=== PATIENT | male | born 1995 | race Caucasian/White ===

== ENCOUNTER 2020-11-12 19:06 | Emergency (ER) | payer OTHER, SELFPAY ==
[2020-11-12] VITALS (7 sets, daily range): BP systolic 117–150; BP diastolic 79–99; PULSE 91–113; RESP 18; TEMP 37.1–37.6; O2SAT 97–99; BMI 24.3
--- NOTE | 2020-11-12 19:20 | XR_ITS ---
PROCEDURE INFORMATION: Exam: XR Chest Exam date and time: 11/12/2020 7:20 PM Age: 25 years old Clinical indication: Cough and shortness of breath and other: Weakness TECHNIQUE: Imaging protocol: XR of the chest. Views: 2 views. COMPARISON: No relevant prior studies available. FINDINGS: Lungs: Right lower lobe consolidative opacity. No appreciable pulmonary edema. Pleural spaces: No pleural effusion. No pneumothorax. Heart/Mediastinum: Cardiomediastinal silouhette is within normal limits. Bones/joints: No acute osseous abnormality. Soft tissues: Unremarkable. IMPRESSION: Right lower lobe consolidative opacity, compatible with pneumonia vs segmental atelectasis. Follow-up imaging to resolution is warranted.
[2020-11-12 19:38] LABS: Basophils # 0.1 K/mm3 (0-0.2); Basophils % 1.4 % (0.1-2.0); Eosinophils % 0.8 % (0.1-12.0); Hematocrit 52.9 % (42.0-52.0); Lymphocytes # 1.2 K/mm3 (0.7-4.5); Lymphocytes % 34.8 % (10-50); Mean Corpuscular HGB Conc 34.1 g/dL (31.8-35.4); Mean Corpuscular Hemoglobin 30.5 pg (27.0-31.2); Mean Corpuscular Volume 89.4 fl (80-94); Monocytes # 0.2 K/mm3 (0.1-1.0); Monocytes % 5.6 % (1.7-9.3); Neutrophils # 1.9 K/mm3 (1.8-7.8); Neutrophils % 57.4 % (37.0-80.0); Platelet Count 157 K/mm3 (142-424); Red Blood Count 5.92 M/mm3 (4.60-6.20); Red Cell Distribution Width 12.8 % (11.5-17.5); White Blood Count 3.3 K/mm3 (4.8-10.8)
[2020-11-12 19:45] LABS: Alanine Aminotransferase 34 U/L (12-78); Albumin Level 4.7 g/dl (3.5-5.0); Albumin/Globulin Ratio 1.6 (1.1-1.8); Alkaline Phosphatase 61 U/L (38-126); Anion Gap 16.9 mEq/L (5-15); Aspartate Amino Transferase 37 U/L (17-59); Bilirubin,Total 0.5 mg/dl (0.2-1.3); Blood Urea Nitrogen 7 mg/dl (9-20); Calcium 8.7 mg/dl (8.4-10.2); Carbon Dioxide 29 mmol/L (22.0-30.0); Chloride 99 mmol/L (98-107); Creatinine Clearance Estimated 122 mL/min (50-200); Estimated Glomerular Filt Rate 93 ml/min (>60); GFR (African American) 112 ML/MIN (>60); Glucose 97 mg/dl (74-100); Potassium 3.9 mmoL/L (3.5-5.1); Sodium 141 mmol/L (136-145); Total Protein,Serum 7.7 g/dl (6.3-8.2)
[2020-11-12 19:57] LABS: C-Reactive Protein 16.2 mg/L (0-4)
[2020-11-12 20:11] LABS: Procalcitonin 0.158 ng/mL (0.0-2.0)
[2020-11-12 20:35] LABS: Erythrocyte Sedimentation Rate 1 mm/hr (0-15)
--- NOTE | 2020-11-12 21:03 | [facility].EDWEAK ---
ED Disposition Clinical Impression: COVID-19 with pulmonary comorbidity Disposition: Home, Self-Care Condition on Discharge: Good Instructions: DI for COVID-19 (Suspected or Confirmed ) Additional Instructions: use meds and call pcp for follow up Prescriptions: levoFLOXacin [Levaquin 500mg tab] 500 mg PO DAILY #7 tab Transmission Status: Pending to [id number] Referrals: Provider,Referral, [Primary Care Provider] - - Critical Care Critical Care Time: No Attestation: On 11/12/20, the high probability of a clinically significant, sudden or life threatening deterioration of the following system(s) required my full and direct attention, intervention and personal management. The time I documented below is in addition to time spent performing reported procedures but includes the following listed in this critical care notation. Medical Decision Making - Medical Records Medical records reviewed: Yes: I reviewed the patient's medical records. - Castro Inquiry Pt receiving controlled substance: No Vital Signs: 11/12/20 19:08 11/12/20 19:12 11/12/20 19:14 Temperature 99.6 F Temperature Source Oral Pulse Rate 104 H 110 H Pulse Rate [Right] 113 H Respiratory Rate 18 Blood Pressure 144/94 H 150/94 H Blood Pressure [Right Arm] 144/99 H Blood Pressure Mean 112 114 Blood Pressure Mean [Right Arm] 114 02 Sat by Pulse Oximetry 99 99 98 11/12/20 19:30 11/12/20 20:01 11/12/20 20:30 Temperature Temperature Source Pulse Rate 106 H 103 H 101 H Pulse Rate [Right] Respiratory Rate Blood Pressure 118/81 117/79 130/79 Blood Pressure [Right Arm] Blood Pressure Mean 97 93 96 Blood Pressure Mean [Right Arm] 02 Sat by Pulse Oximetry 99 97 - Lab Data Lab results reviewed: Yes: I reviewed the patient's lab results. Lab Results 11/12/20 19:25: WBC 3.3 L, RBC 5.92, Hgb 18.0, Hct 52.9 H, MCV 89.4, MCH 30.5, MCHC 34.1, RDW 12.8, Plt Count 157, MPV 8.0, Neut % (Auto) 57.4, Lymph % (Auto) 34.8, Cascade % (Auto) 5.6, Eos % (Auto) 0.8, Baso % (Auto) 1.4, Neut # (Auto) 1.9, Lymph # (Auto) 1.2, Cascade # (Auto) 0.2, Eos # (Auto) 0.0, Baso # (Auto) 0.1 11/12/20 19:25: Sodium 141, Potassium 3.9, Chloride 99, Carbon Dioxide 29, Anion Gap 16.9 H, BUN 7 L, Creatinine 1.00, Estimated Creat Clear 122, Estimated GFR 93, Est GFR ( Amer) 112, Glucose 97, Calcium 8.7, Total Bilirubin 0.5, AST 37, ALT 34, Alkaline Phosphatase 61, Total Protein 7.7, Albumin 4.7, Globulin 3.0, Albumin/Globulin Ratio 1.6 11/12/20 19:25: ESR 1 11/12/20 19:25: C-Reactive Protein 16.2 H, Procalcitonin 0.158 Result diagrams: 11/12/20 19:25 11/12/20 19:25 Orders (Tests/Meds): ED MEDICATIONS Generic Name Dose Route Start Last Admin Trade Name Freq PRN Reason Stop Dose Admin Sodium Chloride 1,000 mls @ 999 mls/hr 11/12/20 20:00 11/12/20 20:01 Sod Chlor 0.9% 1000ml Bag IV 11/12/20 21:00 999 mls/hr .[id number] GINA Administration Discontinued Medications Generic Name Dose Route Start Last Admin Trade Name Freq PRN Reason Stop Dose Admin Dexamethasone Sodium Phosphate 10 mg 11/12/20 19:58 11/12/20 20:00 Dexamethasone 4mg/Ml 5ml Mdv IV 11/12/20 19:59 10 mg ONCE ONE Administration Iopamidol 70 ml 11/12/20 21:32 11/12/20 21:33 Iopamidol-370 (76%);100ml Bottle IV 11/12/20 21:33 70 ml ONCE ONE Administration Ketorolac Tromethamine 30 mg 11/12/20 19:58 11/12/20 20:00 Ketorolac 30mg/Ml Vial IV 11/12/20 19:59 30 mg ONCE ONE Administration Ondansetron HCl 4 mg 11/12/20 19:58 11/12/20 20:00 Ondansetron 4mg/2ml Vial IV 11/12/20 19:59 4 mg ONCE ONE Administration Sodium Chloride 50 ml 11/12/20 21:32 11/12/20 21:33 0.9 % Sodium Chloride 50 Ml Vial IV 11/12/20 21:33 50 ml ONCE ONE Administration Sodium Chloride 10 ml 11/12/20 21:32 11/12/20 21:33 Sodium Chloride 0.9% 10ml Syr (Rad Only) IV 11/12/20 21:33 10 ml ONCE ONE Administration
--- NOTE | 2020-11-12 21:04 | CT_ITS ---
PROCEDURE INFORMATION: Exam: CTA Chest With Contrast Exam date and time: 11/12/2020 9:04 PM Age: 25 years old Clinical indication: Shortness of breath and other: Weakness; Additional info: Weakness, covid positive TECHNIQUE: Imaging protocol: Computed tomographic angiography of the chest with contrast. 3D rendering (Not supervised by radiologist): MIP and/or 3D reconstructed images were created by the technologist. Radiation optimization: All CT scans at this facility use at least one of these dose optimization techniques: automated exposure control; mA and/or kV adjustment per patient size (includes targeted exams where dose is matched to clinical indication); or iterative reconstruction. Contrast material: ISOVUE; Contrast volume: 70 ml; Contrast route: INTRAVENOUS (IV); COMPARISON: CR XR CHEST 2V 11/12/2020 7:27 PM FINDINGS: Pulmonary arteries: No pulmonary emboli. Aorta: No aortic dissection or aneurysm. Lungs: Segmental distribution of heterogeneous mixed ground-glass and consolidative opacity in the posterior basal right lower lobe. Multiple scattered 5-6 mm noncalcified nodules surrounded by ground-glass halos in the bilateral lungs (i.e. series 2, image 170, 187, 196, 199, 221). Ill-defined 11 mm noncalcified nodule with ground-glass halo in the superior aspect of the left lower lobe. Central airways are patent. No endobronchial lesion identified. Pleural spaces: No pneumothorax. No pleural effusion. Heart: No cardiomegaly. No pericardial effusion. Mediastinal space: No abnormal mediastinal soft tissue mass. Lymph nodes: Multiple mildly enlarged mediastinal and hilar lymph nodes, likely reactive. Bones/joints: No acute fracture or malalignment. Soft tissues: Gynecomastia. IMPRESSION: 1. Segmental distribution of heterogeneous mixed ground-glass and consolidative opacity in the posterior basal right lower lobe, compatible with pneumonia vs aspiration pneumonia. 2. Ill-defined 11 mm nodule with surrounding inflammatory changes in the superior aspect of the left upper lobe and multiple additional similar-appearing 5-6 mm nodules scattered throughout the lungs, nonspecific. Please see comments below. 3. Gynecomastia. COMMENTS: For patients at low risk (minimal or absent history of smoking and of other known risk factors), recommend CT Chest at 3-6 months, then consider CT Chest at 18-24 months. For patients at high risk (history of smoking or of other known risk factors), recommend CT Chest at 3-6 months, then CT Chest at 18-24 months. For patients with history of known primary cancer, recommend further workup per clinical protocol. (Reference: Mike) REFERENCES: Mike Villafana, et al. Guidelines for Management of Incidental Pulmonary Nodules Detected on CT Images: From the Fleischner Society 2017. Radiology. 2017;284(1):228-243.
== END 2020-11-12 22:54 | disposition home or self-care (01) ==
PROVIDERS: Emergency Medicine; Emergency Provider Emergency Medicine
DX: U07.1 COVID-19 (principal); J98.4 Other disorders of lung
CPT/HCPCS: 71046; 71275; 80053; 84145; 85025; 85651; 86140; 96365; 96375; 99283; J2405; Q9967